=== PATIENT | female | born 1935 | race Caucasian/White ===

== ENCOUNTER → 2021-03-24 11:29 | Outpatient (CLI) | payer MEDICARE, SELFPAY ==
--- NOTE | ~2021-03-24 | CT_ITS ---
EXAMINATION: CT thoracic spine wo con EXAM DATE: 03/24/2021 11:44 INDICATION: Thoracic pain. Spasms. TECHNIQUE: Spiral CT thoracic spine wo con was performed without contrast. Axial, coronal and sagit sahil images were reviewed. The dose-length product (DLP) for this examination was 515.79 mGy-cm. The exposure was tailored according to patient size (auto mA exposure control), and iterative reconstruc tion (ASIR) was used as additional dose reduction technique. There is no prior study for comparison. FINDINGS: There is mild thoracolumbar levoscoliosis. Mild diffuse thoracic disc disease. The vertebr al body heights are maintained. Cholecystectomy clips. Mild thoracic facet arthropathy. No endplate erosive change. No evidence of central canal stenosis. No significant neural foraminal stenosis. Para spinal soft tissue is unremarkable. IMPRESSION: 1. Mild thoracic spondylosis without significant stenosis suspected. 2. Mild thoracolumbar levoscoliosis. Reviewed, dictated and finalized at location A.
== END ==
PROVIDERS: PCP Family Medicine; Visit Provider Family Medicine
DX: M47.894 Other spondylosis, thoracic region (principal)
CPT/HCPCS: 72128

== ENCOUNTER 2023-04-08 15:22 | Outpatient (CLI) | payer MEDICARE, SELFPAY ==
[2023-04-08 18:43] LABS: Kit Draw Collected
== END 2023-04-08 15:23 | disposition home or self-care (01) ==
LOC: ANHGOSHLAB 15:23
PROVIDERS: PCP Family Medicine; Visit Provider Family Medicine
DX: E03.9 Hypothyroidism, unspecified (principal); I10 Essential (primary) hypertension; I25.10 Atherosclerotic heart disease of native coronary artery without angina pectoris; E78.2 Mixed hyperlipidemia; E11.42 Type 2 diabetes mellitus with diabetic polyneuropathy
CPT/HCPCS: 36415

== ENCOUNTER → 2023-04-14 10:32 | Outpatient (CLI) | payer MEDICARE, SELFPAY ==
--- NOTE | ~2023-04-14 | CT_ITS ---
EXAMINATION: CT lumbar spine wo con DATE: 04/14/2023 10:53 INDICATION: Low back pain. Radiculopathy. TECHNIQUE: Computed tomography (CT) of the lumbar spine was performed without intravenous contrast. A utomated exposure control and iterative reconstruction technique were employed. The dose-length produ ct was 502.51 mGy-cm. COMPARISON: Lumbar spine radiograph 05/31/2019 FINDINGS: There is calcified atherosclerosis of the aorta and many of the other arteries. There is a 15 degrees levoscoliosis of lumbar spine. There is 3 mm retrolisthesis of L1 on L2 and L2 on L3. Vert ebral body heights are normal. There is severely decreased disc height at L1-L2 and L2-L3 and mildly decreased disc height at L4-L5 and L5-S1. The following disc levels are specifically discussed: L1-L2: The disc is bulging. There is severe bilateral facet joint osteoarthritis. There is moderate r ight and mild left neural foraminal stenosis. There is mild central canal stenosis. L2-L3: The disc is bulging. There is severe bilateral facet joint osteoarthritis. There is moderate b ilateral neural foraminal stenosis. There is mild central canal stenosis. L3-L4: The disc is bulging. There is severe bilateral facet joint osteoarthritis. There is moderate r ight and mild left neural foraminal stenosis. There is mild central canal stenosis. L4-L5: The disc is bulging. There is severe bilateral facet joint osteoarthritis. There is moderate r ight and mild left neural foraminal stenosis. There is mild central canal stenosis. L5-S1: The disc is bulging. There is severe bilateral facet joint osteoarthritis. There is mild bilat eral neural foraminal stenosis. There is mild central canal stenosis. IMPRESSION: 1. Severe lumbar spondylosis. 2. Lumbar levoscoliosis. Reviewed, dictated and finalized at location E.
== END ==
PROVIDERS: PCP Family Medicine; Visit Provider Family Medicine
DX: M47.26 Other spondylosis with radiculopathy, lumbar region (principal)
CPT/HCPCS: 72131

== ENCOUNTER 2023-07-25 09:18 | Outpatient (CLI) | payer MEDICARE, SELFPAY ==
--- NOTE | ~2023-07-25 | MR_ITS ---
MRI of the lumbar spine Clinical History: Back pain Technique: Axial T2-weighted images, and sagittal T1-weighted, T2-weighted, and T2 fat-sat images wer e acquired. COMPARISON: 06/12/2012 Findings: No fracture identified. There is 4 mm retrolisthesis of L1 over L2. There is 3 mm retrolist hesis of L2 over L3. No suspicious bone marrow signal abnormality seen. At L1-L2, there is severe degenerative disc narrowing. There is mild disc bulge and moderate facet ar thropathy. No central canal stenosis. There is severe right neural foraminal narrowing. There is mild left neural foraminal narrowing. At L2-L3, there is severe degenerative disc change, with disc bulge and moderate facet arthropathy. N o roseann central canal stenosis. There is severe right neural foraminal compromise and mild to moderat e left neural foraminal compromise. At L3-L4, there is disc bulge and severe facet arthropathy, resulting in moderate central canal steno sis. There is mild to moderate bilateral neural foraminal narrowing. At L4-L5, disc bulge and severe facet arthropathy are present, with mild central canal stenosis. Ther e is severe bilateral neural foraminal compromise. At L5-S1, there is disc bulge and moderate to severe facet arthropathy. No central canal stenosis. Th ere is minimal right neural foraminal narrowing. Left neural foramen preserved. Paravertebral soft tissues are unremarkable. Impression: Severe degenerative spondylosis, as detailed above. 4 mm retrolisthesis of L1 over L2. 3 mm retrolisthesis of L2 over L3. Reviewed, dictated and finalized at [facility]. 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 4 mm retrolisthesis of L1 over L2. 3 mm retrolisthesis of L2 over L3.
== END 2023-07-25 09:19 | disposition home or self-care (01) ==
PROVIDERS: PCP Family Medicine; Visit Provider Anesthesiology Pain Medicine
DX: M48.062 Spinal stenosis, lumbar region with neurogenic claudication (principal); M47.896 Other spondylosis, lumbar region
CPT/HCPCS: 72148

== ENCOUNTER 2023-07-27 09:11 | Day surgery (SDC) | payer MEDICARE, SELFPAY ==
--- NOTE | ~2023-07-27 | XR_ITS ---
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 TECHNIQUE: 6 fluoroscopic images of the lumbar spine were obtained during midline L4-5 interlaminar i njection performed by the surgeon. I was not present during the procedure. Fluoroscopy exposure time was 8.6 seconds. Air Kerma 1.51 mGy. COMPARISON: None FINDINGS: Injection the midline lumbar spine at L4-5, followed by contrast injection. IMPRESSION: Fluoroscopic documentation of midline L4-5 interlaminar injection. Please refer to the operative note for complete procedural details. Reviewed, dictated and finalized at location K. OFFICER
[2023-07-27 09:35] VITALS: BP 148/74; PULSE 66; RESP 20; TEMP 36.4; O2SAT 97
--- NOTE | 2023-07-27 10:29 | WPDHPUPDATE1 ---
History and Physical Update Update Date/Time: 07/27/23 10:29 History and Physical has been reviewed, including an updated exam of the patient. There are NO changes in the patient's condition. Risks, benefits, and alternatives have been discussed and questions answered. Patient agrees to proceed with procedure.
--- NOTE | 2023-07-27 10:30 | W.PM.PROC2 ---
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 Post-op Diagnosis Same Procedure Performed Midline L4-5 interlaminar epidural steroid injection under fluoroscopic guidance with contrast control. Surgeon Bora Castellano MD Anesthesia Local Description of Procedure INFORMED CONSENT: Risks, benefits and alternatives to the procedure were discussed in detail with the patient who expressed explicit understanding and consent to proceed. Patient was informed verbally and in written form regarding the risks associated with the procedure including the low risk of serious infection, bleeding/bruising, allergic reaction, nerve or organ injury, paralysis, procedural site pain or discomfort, worsening pain and/or mobility, failure to treat and/or disfigurement. The patient expressed explicit understanding and consent to proceed. All materials required for the procedure were available prior to procedure start. Site and side were marked prior to procedure and confirmed in the presence of the patient. PROCEDURE IN DETAIL: The patient was brought to the procedural suite and placed in the prone position. Patient was made comfortable with use of pillows under the head/chest, hips and ankles. Skin overlying the injection site was prepared broadly with ChloraPrep applicator and draped in a sterile manner. Aseptic technique was employed throughout. The endplates of the vertebral body at the site of interest were aligned in the AP view. Slight caudad tilt and ipsilateral oblique angulation was utilized to optimize visualization of the targeted posterior intervertebral foramen at L4-5. Local anesthesia was established by infiltration with approximately 5 mL of 2% lidocaine via a 1-1/2 inch 27-gauge needle. A 20-gauge 4-inch Tuohy epidural needle was advanced intermittently until appropriate loss of resistance to air was identified via plastic loss of resistance syringe. Lateral view was used to confirm the appropriate positioning of the needle tip within the posterior epidural space. In the AP and lateral views, a total of 2.0 mL of Omnipaque 300 contrast medium was injected after negative aspiration for CSF, blood or other bodily fluid, showing appropriate posterior epidural spread of contrast without evidence of intravascular or intrathecal placement. After a repeat negative aspiration for blood or other bodily fluid, a 4 mL solution containing 6 mg of betamethasone in sterile PF Normal Saline was injected after negative repeat aspiration. Appropriate spread of the injectate was confirmed with washout of previously injected contrast. No parasthesias were elicited. Needle was removed completely intact without difficulty. Images were saved and documented in the patient chart. Patient's skin was cleaned and sterile bandage applied. The patient tolerated the procedure well. The patient was transported to the recovery area in stable condition where they were observed for an appropriate amount of time prior to discharge, without evidence of complication. The patient was instructed to avoid excessive activity for the next 48 hours, including climbing and frequent use of stairs. Showers only for 48 hours. They were instructed not to drive or operate heavy machinery for 24 hours. They are to monitor for severe headaches, fevers, chills, night sweats, erythema/swelling at the site or any other signs of infection, bleeding/bruising, bowel or bladder changes as well as new pain, weakness or numbness in the upper or lower extremity. Should they notice these changes, they are instructed to call our office immediately or report directly to the nearest Emergency Department if no answer or if after posted office hours. COMPLICATIONS: None COMMENTS: None CONTRAST WASTED: 28 mL Omnipaque 300. Complications None Condition Stable Disposition Same day [facility] - Charge
[2023-07-27 11:11] VITALS: BP 171/80; PULSE 73; RESP 12; O2SAT 93
[2023-07-27] MEDS: LIDOCAINE HCL 1% PF INJ 5 ML VIAL XX (11:14)
[2023-07-27] MEDS: BETAMETHASONE SODIUM PHOSPHATE PF INJ 6 MG/ML VIAL INFILTRATE (11:19)
[2023-07-27 11:20] VITALS: BP 132/70; PULSE 65; RESP 16; O2SAT 98
== END 2023-07-27 11:35 | disposition home or self-care (01) ==
PROVIDERS: PCP Family Medicine; Visit Provider Anesthesiology Pain Medicine
PROC: (CPT 62323; principal; 2023-07-27 11:30)
DX: M48.062 Spinal stenosis, lumbar region with neurogenic claudication (principal); M54.17 Radiculopathy, lumbosacral region
CPT/HCPCS: 62323; 99199

== ENCOUNTER 2024-05-09 15:51 | Outpatient (CLI) | payer MEDICARE, SELFPAY ==
--- NOTE | ~2024-05-09 | XR_ITS ---
HISTORY: M54.9 - Dorsalgia, unspecified COMPARISON: Reference is made to CT examination of the thoracic spine dated 03/24/2021 TECHNIQUE: 3 views of the thoracic spine were performed. FINDINGS: No acute compression fracture is present. Diffuse bony demineralization is identified. Moderate degenerative disease is identified with osteophyte formation and disc space narrowing. Endplate changes are also demonstrated. IMPRESSION: Degenerative disease without acute compression fracture Reviewed, dictated and finalized at location A. 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
--- NOTE | ~2024-05-09 | XR_ITS ---
HISTORY: M54.9 - Dorsalgia, unspecified COMPARISON: Reference is made to MRI examination of the lumbar spine dated 07/17/2023 TECHNIQUE: 4 views of the lumbar spine were performed. FINDINGS: Levoscoliotic curvature of the lumbar spine is detected. Significant facet arthropathy is also noted. Preservation of the normal lordotic curvature is identified within the lumbar spine. Degenerative disease is noted with osteophyte formation, disc space narrowing, endplate changes and v acuum phenomena. Calcification of the abdominal aorta is present. Fecal stasis within the lower abdomen. No acute comp ression fracture is present. IMPRESSION: Significant degenerative disease, without acute fracture. Reviewed, dictated and finalized at location A. PADDER
== END 2024-05-09 15:52 | disposition home or self-care (01) ==
PROVIDERS: PCP Family Medicine; Visit Provider Family Medicine
DX: M47.817 Spondylosis without myelopathy or radiculopathy, lumbosacral region (principal); M48.062 Spinal stenosis, lumbar region with neurogenic claudication; M51.369 Other intervertebral disc degeneration, lumbar region without mention of lumbar back pain or lower extremity pain
CPT/HCPCS: 72072; 72110

== ENCOUNTER 2024-09-07 11:33 | Outpatient (CLI) | payer MEDICARE, SELFPAY ==
[2024-09-07 13:33] LABS: Basophils Percent Auto 0.5 % (0.2-1.2); Eosinophils Percent Auto 0.5 % (0-4.4); Immature Granulocyte Absolute 0.05 K/mm3 (0.00-0.031); Immature Granulocyte Percent A 0.6 % (0-0.5); Lymphocytes Absolute Auto 1.98 K/mm3 (0.9-3.2); Lymphocytes Percent Auto 22.7 % (18.3-44.2); Mean Corpuscular HGB Conc 35.6 g/dl (32-36); Mean Corpuscular Hemoglobin 33.3 pg (26-34); Mean Corpuscular Volume 93.6 fl (80-100); Mean Platelet Volume 9.6 fl (7.4-10.4); Monocytes Absolute Auto 0.7 K/mm3 (0.1-0.6); Monocytes Percent Auto 8.4 % (2.6-8.5); Neutrophils Absolute Auto 5.9 K/mm3 (1.3-6.7); Neutrophils Percent Auto 67.3 % (45.5-73.1); Platelet Count Result 220 k/mm3 (150-375); Red Blood Count 4.81 M/mm3 (4.2-5.4); Red Cell Distribution Width 12.4 % (11.5-14.5); White Blood Count 8.7 K/mm3 (4.5-10.0)
[2024-09-07 13:35] LABS: Hemoglobin A1C 7.3 % (<5.7)
[2024-09-07 14:03] LABS: Cholesterol 124 mg/dL (0-200); Triglycerides 181 mg/dL (<150)
[2024-09-07 14:15] LABS: HDL Direct 54 mg/dL; LDL Cholesterol Direct 40 mg/dL
[2024-09-07 14:35] LABS: Creatinine Urine 129.8 mg/dL
[2024-09-07 14:40] LABS: MALB Creatinine Ratio 7.9 mg/g (0-30); Microalbumin Urine Random 10.3 mg/L (0-16.7)
== END 2024-09-07 11:34 | disposition home or self-care (01) ==
LOC: ANHGOSHLAB 11:34
PROVIDERS: PCP Family Medicine; Visit Provider Family Medicine
DX: E11.42 Type 2 diabetes mellitus with diabetic polyneuropathy (principal); E03.9 Hypothyroidism, unspecified; K59.00 Constipation, unspecified
CPT/HCPCS: 36415; 80061; 82043; 82607; 83036; 84443; 85025

== ENCOUNTER 2024-09-07 11:50 | Outpatient (CLI) | payer MEDICARE, SELFPAY ==
--- NOTE | ~2024-09-07 | XR_ITS ---
XR abdomen/kub 1V Ordering provider: Wanda West MD History: . abdominal pain, constipation . Comparison: None. FINDINGS: BOWEL: Nonobstructive bowel gas pattern. Fecal material is seen in both sides of the colon suggestive of constipation. ORGANOMEGALY: None. SIGNIFICANT PATHOLOGIC CALCIFICATIONS: None. Calcifications seen in the right upper quadrant most l ikely outside the kidney. OTHER: No free air is seen under the diaphragm. Degenerative changes of the spine with levoscoliosis. Bilateral hip severe osteoarthritic changes. Bi lateral sacroiliacs. IMPRESSION: NO ACUTE ABDOMINAL FINDINGS. Constipation. Reviewed, dictated and finalized at location A.
== END 2024-09-07 11:51 | disposition home or self-care (01) ==
LOC: GOSHIMG 11:50
PROVIDERS: PCP Family Medicine; Visit Provider Family Medicine
DX: K59.00 Constipation, unspecified (principal)
CPT/HCPCS: 74018